=== PATIENT | female | born 1980 | race African-American/Black ===

== ENCOUNTER 2016-08-10 14:23 | Emergency (ER) | payer MEDICAID ==
[~2016-08-10] VITALS: Ht 177.8 cm; Wt 64.4 kg
[2016-08-10] MEDS ORDERED: IBUPROFEN600 MG ORAL (16:20)
[2016-08-10 16:25] VITALS: BP 113/76
--- NOTE | 2016-08-10 22:14 | Emergency Room Report ---
History of Present Illness General Chief Complaint: Chest Pain Source: Patient Present Illness HPI The patient is a 36 yo female presenting with left-sided chest pain which she states began 1 week prior after bending over to tie her shoes. The pain has been constant since this time and is now described as a 2/10 pressure which occasionally becomes a 6/10 sharp pain without any known provoking factor. The patient denies any medical history including any cardiac history. Patient denies any familial history. The patient denies N, V, F, chills, dizziness, diaphoresis, weakness Allergies: Coded Allergies: No Known Allergies (Unverified , 08/10/16) Patient History Past Medical History: see triage record Pertinent Family History: none Last Menstrual Period: pt does not recall Now: No Reviewed Nursing Documentation: PMH: Agreed, PSxH: Agreed Nursing Documentation-PMH Past Medical History: No Stated History Review of Systems All Other Systems: negative except mentioned in HPI Physical Exam Vital Signs Date Time Temp Pulse Resp B/P Pulse Ox O2 Delivery O2 Flow Rate FiO2 08/10/16 14:38 98.6 66 16 113/76 100 Room Air Sp02 EP Interpretation: reviewed, normal General Appearance: normal inspection Head: normocephalic, atraumatic Eyes: bilateral eye PERRL, bilateral eye normal inspection ENT: hearing grossly normal, normal pharynx, no angioedema, normal voice Neck: full range of motion, supple/symm/no masses Respiratory: chest non-tender, lungs clear, normal breath sounds, speaking full sentences Cardiovascular #1: regular rate, rhythm, no edema, no murmur, no rub Gastrointestinal: normal bowel sounds, non tender, soft, non-distended, no guarding, no rebound Rectal: deferred Genitourinary: normal inspection, no CVA tenderness Musculoskeletal: back normal, gait/station normal, normal range of motion, non- tender Neurologic: alert, oriented x3, responsive, motor strength/tone normal, sensory intact, speech normal Psychiatric: judgement/insight normal, memory normal, mood/affect normal, no suicidal/homicidal ideation Skin: normal color, no rash, warm/dry, well hydrated Medical Decision Making PA Attestation Dr. Mejia is my supervising physician. Patient management was discussed with my supervising physician Diagnostic Impression: Primary Impression: Pericarditis Additional Impression: Chest pain ER Course The patient is a 36 yo female presenting with left-sided chest pain which she states began 1 week prior after bending over to tie her shoes. Differential diagnosis include but not limited to ACS, pericarditis, PE,CHF, pneumonia, gastritis PE: vitals WNL. NAD. RRR. No MRG. Chest non tender. Lungs CTA bilat. EKG shows ST elevation in most leads. Chest x-ray is unremarkable. No enlargement of the heart The patient was given Motrin for pain with good relief The patient will be discharged home with a prescription for Motrin. ER precautions are given EKG Diagnostic Results EP Interpretation: EKG shows ST elevation in most leads. NSR. Rate: normal - 60 Rhythm: NSR ST Segments: other - EKG shows ST elevation in most leads. ASA given to the pt in ED: No PA Scribe Text EKG was reviewed and read with my supervising physician. Normal rate and rhythm. No acute changes. ST elevation as above Chest X-Ray Diagnostic Results EP Interpretation: Yes Findings: no consolidation, no effusion, no pneumothorax Number of Views: 2 PA Scribe Text I am acting as scribe for my supervising physician. My supervising physician's interpretation of the chest xrays are there is no consolidation, no effusion, no acute cardiopulmonary disease, no pneumothorax Last Vital Signs Date Time Temp Pulse Resp B/P Pulse Ox O2 Delivery O2 Flow Rate FiO2 08/10/16 16:28 98.6 08/10/16 16:25 16 113/76 100 Room Air 08/10/16 16:25 87 Status: improved Disposition: HOME, SELF-CARE Condition: Improved Scripts Ibuprofen* (MOTRIN*) 600 Mg Tablet 600 MG ORAL Q8H Y for For Pain, #30 TAB 0 Refills Prov: CHRISTOPHER GAMING 08/10/16 Referrals: NOT CHOSEN [facility]/,REFERRING (PCP) Patient Instructions: Pericarditis Additional Instructions: I discussed my findings with the patient. All questions and concerns have been answered. Treatment and medication compliance have been addressed. I advised the patient that they need to follow up with PMD in 3-5 days. Return to ED if symptoms worsen, new symptoms arise, or if needed for any reason. Patient verbalized understanding of discharge instructions. CHRISTOPHER GAMING Aug 10, 2016 22:14
--- NOTE | 2016-08-12 15:18 | Cardiology Report ---
APPROVED REPORT EKG Measurement Heart [id number] Normal sinus rhythm Possible Left atrial enlargement Borderline ECG
--- NOTE | 2016-08-16 10:30 | Diagnostic Imaging Report ---
Indication: Dyspnea Comparison: None 2 views of the chest obtained. Findings: Cardiomediastinal silhouette and pulmonary vascularity are within normal limits for age. The diaphragmatic contour is smooth and costophrenic angles are sharp. No pleural effusions are identified. The bones are unremarkable. Impression: No acute disease
== END 2016-08-10 16:48 | disposition home or self-care (01) ==
LOC: EMR 16:35
DX: I31.9 Disease of pericardium, unspecified (principal); R07.9 Chest pain, unspecified
CPT/HCPCS: 71020; 93005; 99283

== ENCOUNTER 2016-08-17 11:23 | Emergency (ER) | payer MEDICAID ==
[~2016-08-17] VITALS: Ht 162.6 cm; Wt 66.2 kg
[~2016-08-17 11:23] MED LIST: IBUPROFEN600 MG ORAL
[2016-08-17] MEDS ORDERED: Ketorolac 30mg Inj IV ONE (12:00)
--- NOTE | 2016-08-17 12:24 | Emergency Room Report ---
History of Present Illness General Chief Complaint: Chest Pain Source: Patient Present Illness HPI 36 YO F here for recurrent chest pain. States was tx and reelased for pericarditis last week. Has been taking ibuprofen but still with residual pain. Per EMR, patient had diffuse ST elevations on ECG previously. Otherwise denies SOB, pleuritic chest pain, fever/chills, leg pain/swelling, history of DVT/PE. Didnt follow up with PMD or Cardiology in the interim. Allergies: Coded Allergies: No Known Allergies (Unverified , 08/10/16) Patient History Past Medical History: other - ?pericarditis Past Surgical History: none Pertinent Family History: none Social History: Denies: alcohol use, drug use, smoking Last Menstrual Period: Currently on her period Now: No : 0 Para: 0 Immunizations: UTD Reviewed Nursing Documentation: PMH: Agreed, PSxH: Agreed Nursing Documentation-PMH Hx Cardiac Problems: Yes - Pericarditis 08/10/2016 Review of Systems All Other Systems: negative except mentioned in HPI Physical Exam Vital Signs Date Time Temp Pulse Resp B/P Pulse Ox O2 Delivery O2 Flow Rate FiO2 08/17/16 11:29 98.4 69 16 106/71 99 Room Air Sp02 EP Interpretation: reviewed, normal General Appearance: normal inspection, well appearing, no apparent distress, alert Head: normocephalic, atraumatic Eyes: bilateral eye EOMI, bilateral eye PERRL ENT: normal ENT inspection, hearing grossly normal, normal voice Neck: normal inspection, full range of motion, supple, no bony tend Respiratory: normal inspection, lungs clear, normal breath sounds, no respiratory distress, no retraction, no wheezing Cardiovascular #1: regular rate, rhythm, no edema, no murmur, no rub Gastrointestinal: normal inspection, normal bowel sounds, non tender, soft, no guarding, no hernia Genitourinary: no CVA tenderness Musculoskeletal: normal inspection, back normal, normal range of motion, Nam' s Sign negative Neurologic: normal inspection, alert, oriented x3, responsive, wire charger III-XII nml as tested, motor strength/tone normal, speech normal Psychiatric: normal inspection, judgement/insight normal, mood/affect normal Skin: normal inspection, normal color, no rash Medical Decision Making Diagnostic Impression: Primary Impression: Chest pain Qualified Codes: R07.9 - Chest pain, unspecified ER Course 36 YO F with recurrent chest pain for >1 week. VSS. Afebrile ECG today with ?ST elevation in V4-5 but no reciprocal VT depressions Troponin 0, was checked to r/o myocarditis IV toradol given with improvement CXR neg for CXR, effusion Low suspicion for ACS given no CAD risk factors DC home with recommended Cards/PMD followup No other acute issue in ED EKG Diagnostic Results Rate: normal Rhythm: NSR ST Segments: no acute changes ASA given to the pt in ED: No Rhythm Strip Diag. Results EP Interpretation: yes Rhythm: NSR, no PVC's, no ectopy Chest X-Ray Diagnostic Results EP Interpretation: Yes Findings: no consolidation, no effusion, no pneumothorax, no acute cardiopulmonary disease Number of Views: 1 Last Vital Signs Date Time Temp Pulse Resp B/P Pulse Ox O2 Delivery O2 Flow Rate FiO2 08/17/16 11:58 65 16 Room Air 08/17/16 11:29 98.4 106/71 99 Status: improved Disposition: HOME, SELF-CARE Referrals: NOT CHOSEN [facility]/,REFERRING (PCP) LINO MORROW M.D. Aug 17, 2016 12:24
[2016-08-17 12:25] LABS: BASOPHILS % (AUTO) 1.8 % (0.0-2.0); EOSINOPHILS % (AUTO) 4.1 % (0.0-3.0); LYMPHOCYTES % (AUTO) 34.6 % (20.0-45.0); MEAN CORPUSCULAR HEMOGLOBIN 30.2 PG (27.0-31.0); MEAN CORPUSCULAR HGB CONC 32.2 G/DL (32.0-36.0); MEAN CORPUSCULAR VOLUME 94 FL (80-99); MEAN PLATELET VOLUME 8.3 FL (6.5-10.1); NEUTROPHILS % (AUTO) 52.5 % (45.0-75.0); PLATELET COUNT 212 K/UL (150-450); RED BLOOD COUNT 4.48 M/UL (4.20-5.40); WHITE BLOOD COUNT 5.5 K/UL (4.8-10.8)
[2016-08-17 12:34] LABS: ALANINE AMINOTRANSFERASE 7 U/L (3-33); ALBUMIN/GLOBULIN RATIO 1.5 (1.0-2.7); ANION GAP 12 (5-15); ASPARTATE AMINO TRANSFERASE 14 U/L (5-40); CARBON DIOXIDE 27 mEQ/L (20-30); CHLORIDE 104 mEQ/L (98-107); CREATININE 0.8 mg/dL (0.5-0.9); GLOMERULAR FILTRATION RATE > 60 mL/min (>60); HEMOLYSIS 9; POTASSIUM 4.2 mEQ/L (3.4-4.9); SODIUM 143 mEQ/L (135-145); TOTAL PROTEIN 6.4 g/dL (6.6-8.7); TROPONIN I < 0.30 ng/mL (<=0.30)
[2016-08-17 12:44] LABS: CKMB < 1.5 ng/mL (< 3.8)
[2016-08-17 12:50] VITALS: BP 112/71
--- NOTE | 2016-08-17 13:00 | Diagnostic Imaging Report ---
Indication: Chest Pain Comparison: August 10, 2016 A single view chest radiograph was obtained. Findings: Cardiomediastinal appearance is within normal limits for age. Pulmonary vascularity is appropriate. The diaphragmatic contour is smooth and costophrenic angles are sharp. No pleural effusions are identified. The bones are unremarkable. Impression: No acute findings
--- NOTE | 2016-08-18 17:44 | Cardiology Report ---
APPROVED REPORT EKG Measurement Heart [id number] Normal sinus rhythm Normal ECG
== END 2016-08-17 12:50 | disposition home or self-care (01) ==
LOC: EMR 12:10
DX: R07.9 Chest pain, unspecified (principal)
CPT/HCPCS: 36415; 71010; 80053; 82550; 82553; 84484; 85025; 93005; 96374; 99284; J1885